=== PATIENT | female | born 1960 | race Caucasian/White ===

== ENCOUNTER → 2021-03-20 | Outpatient (CLI) | payer BC ==
[~2021-03-20] MED LIST: SYNTHROID0.075 MG/T PO; ZOCOR 20MG20 MG PO
== END ==
LOC: MC.RAD 07:56
DX: Z12.31 Encounter for screening mammogram for malignant neoplasm of breast (principal)

== ENCOUNTER → 2024-06-26 | Outpatient (CLI) | payer BC ==
[~2024-06-26] MED LIST changes: +PRIL40 PO
== END ==
LOC: MC.RAD 10:12
DX: Z12.31 Encounter for screening mammogram for malignant neoplasm of breast (principal)

== ENCOUNTER 2024-08-16 08:47 | Outpatient (CLI) | payer BC ==
[~2024-08-16] VITALS: Ht 154.9 cm; Wt 87.4 kg
[2024-08-16] MEDS ORDERED: Denosumab 60 MG/ML SYRINGE SQ ONE (09:00)
[2024-08-16] MEDS ORDERED: MASON NATURAL2000 IU PO (09:07)
[2024-08-16] MEDS ORDERED: SYNTHROID0.1 MG/TAB PO (09:07)
[2024-08-16 09:08] VITALS: BP 115/70; PULSE 69; TEMP 98.3
[2024-08-16] MEDS ORDERED: PROLIA60 MG/ML SQ (09:08)
--- NOTE | 2024-08-16 09:25 | NUR ---
Pt tolerated prolia without issue. She states she's taken prolia previously, and has tolerated well. She exits dept with steady gait. Free of complaints at discharge.
== END 2024-08-16 09:25 | disposition home or self-care (01) ==
LOC: EUO 08:47
DX: M81.0 Age-related osteoporosis without current pathological fracture (principal)
CPT/HCPCS: J0897